=== PATIENT | female | born 1970 | race African-American/Black ===

== ENCOUNTER 2023-10-15 11:36 | Emergency (ER) | payer OTHER, MEDICAID | END 2023-10-15 13:40 | disposition home or self-care (01) | LOC: NAV ERS 11:36 | DX: J06.9 Acute upper respiratory infection, unspecified (principal); B37.31 Acute candidiasis of vulva and vagina; I10 Essential (primary) hypertension; F17.290 Nicotine dependence, other tobacco product, uncomplicated | CPT/HCPCS: 87081; 87430; 87635; 87804; 99284 ==